=== PATIENT | female | born 1990 | race Caucasian/White ===

== ENCOUNTER 2016-08-11 02:17 | Inpatient (IN) | payer MEDICAID ==
[~2016-08-11] VITALS: Ht 156.2 cm; Wt 73.6 kg
[~2016-08-11 02:17] MED LIST: IBUPROFEN600 MG PO; MOTRIN600 MG PO; PERCOCET 5-3251 TAB PO; PERCOCET 5/3251 TA1 PO; TYLENOL #4 W/CO1 TAB PO
--- NOTE | 2016-08-11 02:51 | NUR ---
REPORT CALLED TO DR. MELENDEZ PER ASSESSMENT OF Renan FRANKLIN RN AND ER STAFF. INFORMED THAT PT. DELIVERED ENROUTE TO HOSPITAL A FOOTLING BREECH INFANT WITH ASSISTANCE OF HER MOTHER. CURRENTLY IN ER AND IT IS REPORTED THAT NO LACERATION NOTED AND NO REPAIRS FELT NEEDED AND INFANT STATUS IS STABLE [facility] BODY TEMP. LOW. STATES THAT HE WILL SEE PT. IN AM. ORDERS RECEIVED.
--- NOTE | 2016-08-11 03:08 | NUR ---
RECEIVED PT. VIA CART FROM ER. IV OF NS WITH 20U PITOCIN NOTED INFUSING AT 60CC/HR. FLOW RATE INCREASED TO 999CC/HR. FUNDUS FIRM AT U/2 AND LOCHIA RUBRA MOD. KRYSTYNA PADS CHANGED AND KRYSTYNA PANTIES APPLIED. PT. TALKATIVE AND REPORTS "SOME ABD. CRAMPING". INFANT WAS ON MOTHER'S CHEST SKIN TO SKIN ON ARRIVAL TO ROOM AND NBN STAFF TOOK INFANT TO NBN VIA OPEN CRIB. PT. ORIENTED TO ROOM, CALL SYSTEM, AND BED CONTROLS. IV PRESENTLY SITED IN RT AC AREA AND ALARMING WITH PT. BENDING ARM. IV INFUSING PER PUMP.
--- NOTE | 2016-08-11 03:10 | NUR ---
SIDE RAILS UP X 2. PT. AWAKE AND ORIENTED.
--- NOTE | 2016-08-11 03:15 | NUR ---
RECORD INDICATED PT. BLOOD TYPE O+ AND GBS +. NBN INFORMED OF BOTH AND RECORD CURRENTLY IN NBN. PT'S MOTHER RELATES THAT SHE MEET HER DAUGHTER AT THE [facility] STATION BY DYLON URBANO AND SHE GOT INTO THE MOTHER'S CARE AND BEGAN PUSHING. THE PT'S MOTHER RELATES THAT THE FIRST THING THAT SHE SAW PRESENTING WAS AN UMBILICAL CORD AND THEN THE FEET APPEARED. RELATES THAT ONLY SECONDS ELAPSED BETWEEN DELIVERY OF BODY UNTIL HEAD DELIVERED. STATES SHE NOTED BABY HAD A BOWEL MOVEMENT THE BUTTOCKS DELIVERED. PT'S MOTHER REPORTS THAT THE DID NOT CRY INITIALLY ALTHOUGH WAS LOOKING AROUND WITH OPEN EYES. RELATES THAT THE CORD WAS TIED OFF WITH A SHOE LACE. REPORTS THAT THE AMBULANCE DID NOT ARRIVE UNTIL AFTER THE ABOVE EVENTS. PT. RELATES THAT SHE HAD BEEN UNCOMFORTABLE OFF AND ON THROUGHOUT THE DAY (08/10/16) BUT WANTED TO BE SURE THAT IT WAS REAL LABOR. STATES SHE DID FEEL A GUSH OF FLUID, WHICH SHE THOUGH MIGHT BE BLOOD, 5-10 MINUTES PRIOR TO THE BABY DELIVERING. PT'S MOTHER STATES THAT INITIAL FLUID THAT SHE NOTED AT TIME OF DELIVERY WAS CLEAR AND THE INFANT STOOL CAME OUT AFTER THAT.
--- NOTE | 2016-08-11 03:30 | NUR ---
PT. REPORTS ABD. CRAMPING AN 8 OF 10 ON PAIN SCALE. LAUGHING AND TALKING WITH FAMILY AND NURSE.
[2016-08-11 03:37] VITALS: BP 124/75
[2016-08-11] MEDS ORDERED: TYLENOL W/CODEI1 TAB PO (03:45)
[2016-08-11] MEDS ORDERED: XANAX2 MG PO (03:47)
--- NOTE | 2016-08-11 03:49 | NUR ---
QUICK START COMPLETED FOR CURRENT MED USE AND ALLERGIES. PAIN MED GIVEN ORDERED. PT. REPORTS THAT OVER THE LAST TWO DAYS SHE HAS TAKEN TYLENOL #3 AND XANAX PRN. FUNDUS FIRM U/2 AND LOCHIA RUBRA MOD.
[2016-08-11 03:52] VITALS: BP 126/66; BP 128/77; Ht 156.2 cm; Wt 73.6 kg
[2016-08-11 04:07] VITALS: BP 133/82
--- NOTE | 2016-08-11 04:15 | NUR ---
PT. STATES SHE IS FEELING SLEEPY. DESIRES TO VOID. UP TO BATHROOM WITH ASSISTANCE. VOIDED.SELF KRYSTYNA CARE DISCUSSED AND PT. ASSISTED IN PREPARING AND USING. KRYSTYNA PADS AND PANTIES REAPPLIED. PT. RELATES THAT HER PAIN IS "MUCH IMPROVED AND EMPTYING BLADDER MADE A BIG DIFFERENCE". PT. TALKING WITH FOB AND LAUGHING. RATES PAIN A 7 OF 10.
--- NOTE | 2016-08-11 04:17 | NUR ---
FUNDUS FIRM U/2 AND LOCHIA RUBRA MOD. BED RAILS REMAIN UP X 2. FOB REMAINS IN ROOM.
[2016-08-11 04:21] VITALS: BP 126/63
--- NOTE | 2016-08-11 04:23 | NUR ---
INQUIRED IF PT. DESIRED TO EAT. INFORMED OF NOURISHMENTS AVAILABLE. SANDWICH TRAY AND COLA DRINK SERVED. PT. SITTING UP IN BED EATING. STATES DESIRE TO HAVE IV OUT SO SHE CAN BEND ARM. EXPLAINED WHEN COMPLETED WOULD CHANGE TO SALINE LOCK. PT. AGREEABLE.
--- NOTE | 2016-08-11 04:30 | NUR ---
IV COMPLETED AND CONVERTED TO SALINE LOCK. FUNDUS REMAINS FIRM U/2 AND LOCHIA RUBRA SCANT TO MOD AT THIS TIME.
--- NOTE | 2016-08-11 05:15 | NUR ---
INQUIRED OF PT. IF SHE HAD BLOOD DRAWN IN ER FOR LABS. PT. REPORTS THAT THEY DID. [facility] AND ER RECORDS REVIEWED WITHOUT EVIDENCE OF ANY LAB RESULTS. ER CALLED AND THIS NURSE INFORMED NO LABS WERE ORDERED.
--- NOTE | 2016-08-11 05:21 | NUR ---
LAB NOTIFIED FOR BLOOD DRAW.
--- NOTE | 2016-08-11 05:25 | NUR ---
PT. PRESENTLY ON PHONE AND CHEERFUL. ASKING WHEN WILL BE TO ROOM. INFORMED WOULD CHECK WITH NBN. SAME DONE AND RETURNED TO ROOM AND INFORMED PT. THAT WAS BEING SWADDLED TO BRING TO ROOM. PT. CHEERFUL. FOB REMAINS IN ROOM.
--- NOTE | 2016-08-11 06:09 | NUR ---
PT. SITTING UP IN BED FILLING OUT PAPERWORK FOR NBN. LYING ON BED IN FRONT OF PT. PT. STATES PAIN HAS CONTINUED TO DECREASE. C/O THAT SHE WOULD LIKE IV TAKEN OUT. INFORMED THAT LAB WOULD DRAW HER BLOOD ANYTIME AND THEN WE WOULD KNOW HER BLOOD COUNT AND IF ACCEPTABLE, WOULD DISCUSS DISCONTINUING AT THAT TIME. PT. AGREEABLE. FOB REMAINS IN ROOM.
--- NOTE | 2016-08-11 06:56 | NUR ---
LAB HERE AND BLOOD DRAWN.
[2016-08-11 07:10] LABS: HEMATOCRIT 28.2 % (36.0-48.0); HEMOGLOBIN 9.2 g/dL (12-16); MCH 27.5 pg (26.0-34.0); MCHC 32.6 g/dL (31.0-37.0); MCV 84.2 fL (80.0-100.0); MEAN PLATELET VOLUME 11.1 fL (7.4-10.4); RBC 3.35 10x6/uL (4.00-5.40); RDW 15.4 % (11.5-14.5); WBC 18.6 10x3/uL (4.8-10.8)
[2016-08-11 07:18] VITALS: BP 120/74
--- NOTE | 2016-08-11 07:24 | NUR ---
ASSUME CARE OF THIS PT. SITTING UP IN BED WITH INFANT. SHIFT ASSESSMENT COMPLETED. U/2 FIRM MIDLINE, RUBRA MOD. 8/10 C/O ABDOMINAL CRAMPING WITH MOVEMENT. DESIRES PAIN MEDICATION "I'LL TAKE ANYTHING I CAN." WOULD LIKE MOTRIN AND NORCO WHEN IT IS TIME. SMOKER, DESIRES PATCH TODAY. ALSO REQUEST IV OUT SECONDARY TO "STABBING" PAIN. SALINE LOCK REMOVED. WILL RESTART NEEDED. SIDERAILS UP X 2, CALL LIGHT IN REACH. BREAKFAST SERVED. ASKED FOR BOTTLE TO FEED BABY.
--- NOTE | 2016-08-11 07:38 | NUR ---
MOTRIN 600 MG PO GIVEN FOR CRAMPING. NICOTINE 14 MG PATCH PLACED ON LEFT DELTOID AREA LEFT ARM. IN NURSERY.
--- NOTE | 2016-08-11 08:34 | NUR ---
NORO 5 MG GIVEN PO FOR CONTINUED CRAMPING PER REQUEST OF PATIENT. PAIN DECREASED TO 7 /10. SIDERAILS UP X2, CALL LIGHT IN REACH. NO ADDITIONAL REQUESTS.
--- NOTE | 2016-08-11 09:16 | NUR ---
5/10 ON PAIN SCALE STATES "I'M FEELING MUCH BETTER" PUTTING MAKE-UP ON. VISITORS IN ROOM. NO ADDITIONAL REQUESTS AT THIS TIME. INFANT IN NURSERY FOR PEDIATRIC VISIT.
--- NOTE | 2016-08-11 10:20 | NUR ---
AMBULATED TO NURSERY AND RETURNED TO ROOM. VISITORS IN ROOM. NO REQUESTS AT THIS TIME.
[2016-08-11 10:36] LABS: UDS - AMPHET POSITIVE QUAL (NEGATIVE); UDS - BARB NEGATIVE QUAL (NEGATIVE); UDS - BENZO NEGATIVE QUAL (NEGATIVE); UDS - COCAINE NEGATIVE QUAL (NEGATIVE); UDS - METH NEGATIVE QUAL (NEGATIVE); UDS - OPIATE NEGATIVE QUAL (NEGATIVE); UDS - PCP NEGATIVE QUAL (NEGATIVE); UDS - THC NEGATIVE QUAL (NEGATIVE)
--- NOTE | 2016-08-11 11:08 | NUR ---
SITTING UP IN BED. VISITORS IN ROOM. INFANT IN ROOM. REQUESTED ICE CHIPS AND ASKED WHEN PAIN MEDICATION IS DUE. ICE CHIPS, FRESH WATER GIVEN AND LET PT KNOW THAT IT IS TOO EARLY FOR PAIN MED. INSTRUCTED THAT CRAMPING IS COMMON AND REMINDED TO KEEP BLADDER EMPTIED. VERBALIZED UNDERSTANDING. NO DISTRESS NOTED. UDS POSITIVE AND NURSERY WAS INFORMED.
--- NOTE | 2016-08-11 13:10 | NUR ---
RETURNED FROM AMBULATING IN [place]. C/O 8/10 BACK PAIN AND OCCASIONAL CRAMPS WITH WALKING. NORCO 5MG PO GIVEN FOR RELIEF. ALSO DISCUSSED SOME BACK EXERCISES/STRETCHING THAT CAN HELP. VERBALIZED UNDERSTANDING. U/3 FIRM, MIDLINE. VISITORS IN ROOM. LUNCH TRAY AT BEDSIDE. NO OTHER REQUESTS.
--- NOTE | 2016-08-11 14:10 | NUR ---
SAYS SHE IS FEELING MUCH BETTER. 5/10 ON PAIN SCALE. PLANS TO AMBULATE IN [place]. VISITORS IN ROOM. NO REQUESTS.
--- NOTE | 2016-08-11 15:34 | NUR ---
SITTING UP IN BED TALKING TO VISITOR. IN ROOM. FRESH ICE CHIPS GIVEN. NO ADDITIONAL REQUESTS.
--- NOTE | 2016-08-11 17:37 | NUR ---
SITTING UP IN BED TALKING TO VISITORS. DINNER TRAY AT BEDSIDE. DENIES NEEDING ANYTHING AT THIS TIME. CALL LIGHT IN REACH.
--- NOTE | 2016-08-11 18:41 | NUR ---
SITTING UP IN BED BOTTLEFEEDING BABY. DENIES NEEDING ANYTHING AT THIS TIME. PLANS TO SHOWER LATER THIS EVENING. VISITORS IN ROOM.
--- NOTE | 2016-08-11 19:20 | NUR ---
RN TO PT BS FOR ELIAZAR. PT AMBULATING IN ROOM IN NO ACUTE DISTRESS. 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 PT IS A 26YO G3 NOW P3 WITH ENROUTE TO HOSPITAL EARLY THIS AM. PER PT MOTHER REPORT, DELIVERED IN FOOTLING BREECH PRESENTATION WITH UMBILICAL CORD DELIVERED FIRST. NO LACERATIONS NOTED PER ER MD. AAOX3. HR REGULAR. LUNGS CTAB. ABDOMEN SOFT AND NON TENDER. BS ACTIVE TIMES 4. FUNDUS FIRM AND ML @ U/-2. LOCHIA RUBRA SCANT. PERINIUM APPEARS TO BE INTACT WITH NO SWELLING NOTED. KRYSTYNA PAD AND PANTIES IN PLACE. PT DENIES DIFFICULTY VOIDING OR PASSING GAS. PT STATES SHE HAS NOT HAD A BM YET, REQUESTS STOOL SOFTNER. PER DR. 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 NO SWELLING NOTED TO UPPER OR LOWER EXTREMITIES BILATERALLY. NO IV ACCESS. PT C/O PAIN, RATES 8/10, REQUESTS MEDICATION, 1 TAB NORCO 10 AND 1 TAB IBUPROFEN PROVIDED PO AT THIS TIME. PT DENIES ANY FURTHER NEEDS. BED IN LOW POSITION, SIDE RAILS UP TIMES 2, CALL LIGHT AND PHONE IN REACH. SO AT PT BS FOR SUPPORT AND ASSISTANCE. INFANT REMAINS AT PT BS FOR COUPLET CARE. WILL CONT TO MONITOR PT STATUS AND PROVIDE PT WITH MOM WHEN REMOVED BY [employer] SHARPSHOOTER.
[2016-08-11 19:25] VITALS: BP 120/68
--- NOTE | 2016-08-11 19:40 | NUR ---
SHAMPOO, CONDITIONER, SOAP, AND FRESH LINENS PROVIDED TO PT FOR SHOWER.
--- NOTE | 2016-08-11 20:06 | NUR ---
RN TO PT BS. PT RESTING IN BED IN SEMI-FOWLERS POSITION, IN NO ACUTE DISTRESS. MOM PROVIDED AT THIS TIME. PT DENIES ANY FURTHER NEEDS. BED IN LOW POSITION, SIDE RAILS UP TIMES 2, CALL LIGHT AND PHONE IN REACH. FAMILY AT PT BS TIMES 3 FOR SUPPORT AND ASSISTANCE. REMAINS AT PT BS FOR COUPLET CARE. WILL CONT TO MONITOR PT STATUS.
--- NOTE | 2016-08-11 21:50 | NUR ---
RN TO PT BS FOR ROUNDS. PT AMBULATING IN ROOM IN NO ACUTE DISTRESS. PT REQUESTS RN TO BOTTLEFEED INFANT SO SHE CAN AMBULATE. INFANT TRANSPORTED TO LABOR AND DELIVERY DESK FOR INFANT FEED. PT DENIES ANY FURTHER NEEDS. BED IN LOW POSITION, SIDE RAILS UP TIMES 2, CALL LIGHT AND PHONE IN REACH. WILL CONT TO MONITOR PT STATUS.
--- NOTE | 2016-08-11 23:42 | NUR ---
RN TO PT BS FOR ROUNDS. PT AMBULATING IN ROOM IN NO ACUTE DISTRESS. PT C/O PAIN, RATES 9/10, REQUESTS MEDICATION. 1 TAB NORCO 10 PROVIDED AT THIS TIME WITH FRESH CUP OF ICE. PT DENIES ANY FURTHER NEEDS AT THIS TIME. BED IN LOW POSITION, SIDE RAILS UP TIMES 2, CALL LIGHT AND PHONE IN REACH. SO REMAINS AT PT BS FOR SUPPORT AND ASSISTANCE. AT PT BS FOR COUPLET CARE. WILL CONT TO MONITOR PT STATUS.
--- NOTE | 2016-08-12 01:54 | NUR ---
RN TO PT BS FOR ROUNDS. PT SITTING IN BED DISCUSSING POC OF WITH NURSERY RN. PT DENIES ANY NEEDS AT THIS TIME. BED IN LOW POSITION, SIDE RAILS UP TIMES 2, CALL LIGHT AND PHONE IN REACH. WILL CONT TO MONITOR PT STATUS.
--- NOTE | 2016-08-12 03:19 | NUR ---
PT AMBULATING IN [place] IN NO ACUTE DISTRESS. PT DENIES ANY NEEDS AT THIS TIME.
--- NOTE | 2016-08-12 03:32 | NUR ---
PT CALLS, C/O PAIN, RATES 04/14, REQUESTS MEDICATION. 1 TAB IBUPROFEN AND 1 TAB NORCO 10 PROVIDED AT THIS TIME WITH FRESH ICE. PT DENIES ANY FURTHER NEEDS. BED IN LOW POSITION, SIDE RAILS UP TIMES 2, CALL LIGHT AND PHONE IN REACH. WILL CONT TO MONITOR PT STATUS.
--- NOTE | 2016-08-12 04:45 | NUR ---
PT AMBULATING IN [place] IN NO ACUTE DISTRESS. PT ASKS RN TO OBSERVE WHILE SHE AMBULATES. INFANT LEFT AT NURSES STATION IN OPEN CRIB FOR OBSERVATION. SWADDLED IN NO ACUTE DISTRESS. WILL CONT TO MONITOR INFANT.
--- NOTE | 2016-08-12 06:35 | NUR ---
DR. MELENDEZ HERE FOR ROUNDS. REPORT GIVEN TO HIM ON MATERNAL DRUG SCREEN, PAIN MEDICATION GIVEN ON PM SHIFT, AND PT C/O PAIN THROUGH OUT THE NIGHT, PER MD, D/C PAIN MEDICATION AT THIS TIME, PT MAY ONLY HAVE MOTRIN FOR C/O PAIN. ORDERS PLACED AND NOTED.
--- NOTE | 2016-08-12 07:22 | NUR ---
ASSUMED CARE OF THIS PATIENT. CURRENTLY SLEEPING ON RIGHT SIDE. EYES CLOSED, RESPIRATIONS EVEN. NOT AROUSED AT THIS TIME. WILL COMPLETE SHIFT ASSESSMENT AND PLAN FOR DC WHEN AWAKE. INFANT IN NURSERY. SIDE RAILS UP X2, CALL LIGHT IN REACH.
--- NOTE | 2016-08-12 08:00 | NUR ---
INFANT IN ROOM. PT INFORMED SHE HAS BEEN DC'D. ASKED ABOUT ROOMING IN. CONTACTED NEW ORDERS TO ALLOW PT TO ROOM-IN RECEIVED. WILL COMPLETE ASSESSMENT AFTER FEEDING.
[2016-08-12 08:54] VITALS: BP 120/67
--- NOTE | 2016-08-12 09:05 | NUR ---
SHIFT ASSESSMENT COMPLETED. MOTRIN 600 MG GIVEN PO FOR C/O THROBBING MARTINEZ IN TEMPLES 03/14. DC TEACHING COMPLETED. QUESTIONS ANSWERED. DISCUSSED DC MEDICATION MOTRIN 600 MG PO EVERY 6 HOURS NEEDED FOR PAIN. SAYS SHE DOES NOT THINK THAT WILL HELP HER BACKPAIN AND THINKS SHE WILL NEED SOMETHING. SAYS THAT MEDICATION SHE HAS BEEN RECEIVING WHILE IN THE HOSPITAL HAS "BARELY TOUCHED" THE PAIN. INSTRUCTED PT THAT RN WILL LET DR MELENDEZ KNOW. NO ADDITIONAL REQUESTS. IN ROOM. WILL TRANSFER TO CLEAN ROOM FOR ROOMING-IN STATUS ON WOMEN'S FLOOR.
--- NOTE | 2016-08-12 09:50 | NUR ---
PATIENT SIGNED ROOMING-IN PAPERS. DC TO 1214 FOR ROOMING-IN.
[2016-08-14 03:08] LABS: RAPID PLASMA REAGIN Non Reactive (Non Reactive)
[2016-08-19 03:06] LABS: UDSC - AMPHET Comment: (Cutoff=1000); UDSC - BARB Negative ng/mL (Cutoff=300); UDSC - BENZO Negative ng/mL (Cutoff=300); UDSC - COC Negative ng/mL (Cutoff=300); UDSC - METH Negative ng/mL (Cutoff=300); UDSC - OPIATES Negative ng/mL (Cutoff=300); UDSC - PCP Negative ng/mL (Cutoff=25); UDSC - PROPOXY Negative ng/mL (Cutoff=300); UDSC - THC Negative ng/mL (Cutoff=50)
--- NOTE | 2016-10-02 11:44 | DS ---
PATIENT:KILEY BAE :89 MEDICAL RECORD: [id number] DISCHARGE SUMMARY ADMISSION DATE: 08/11/16 DISCHARGE DATE: 08/12/16 HOSPITAL COURSE: The patient was admitted on 08/11/2016. A 26-year-old G2, P1, who presented to the Emergency Room, status post a precipitous breech delivery with a likely cord prolapse. PAST MEDICAL HISTORY: Significant for tobacco, anemia and abnormal Pap smear. PAST SURGICAL HISTORY: The patient reported no surgical history. ALLERGIES: No known allergies. MEDICATIONS: The patient reported medications taking Xanax and Tylenol 3 with codeine. The patient reported no significant past medical history. The patient reported being an everyday smoker of both tobacco and marijuana. Upon initial exam, vital signs were stable. The patient was afebrile and normotensive. Lungs were clear to auscultation. Cardiovascular was regular rate and rhythm. Uterus was appropriately sized and immediate period with minimal lochia. The lower extremities were free of erythema or Homans sign. No significant tears were noted other than a mild first-degree tear at the perineum. LABORATORY DATA: Admission hemoglobin was found to be 9.2. ASSESSMENT AND PLAN: At that time, the patient was admitted, status post precipitous breech delivery out of the hospital. The patient with anemia. The patient had a history of tobacco and marijuana use. Admit for normal care. The patient did well overnight on post- day #0. On day #1, the patient continued to do well. The uterus was infraumbilical and nontender with minimal lochia. Vital signs remained within normal limits. On admission, urine drug screen was found to be positive for amphetamine. The patient was discharged home on day #1 without any narcotics due to high potential for abuse. [facility] was made aware. The patient was instructed to follow up in 4 weeks. TRANSINT:[id number] Voice Confirmation ID: [id number] DOCUMENT ID: [id number] ROMERO MELENDEZ MD at 1142 CC: [id number] DICTATION DATE: 09/23/16 0759 FLOTATION TANK OPERATOR: 09/23/16 0913 DIS IN 08/12/16 [place] [address]
== END 2016-08-12 09:50 | disposition home or self-care (01) | DRG 775 ==
LOC: D.ER 02:17 → D.LD 02:56
PROVIDERS: ADMIT Obstetrics & Gynecology
DX: O99.825 Streptococcus B carrier state complicating the puerperium (principal); Z37.0 Single live birth; O32.1XX0 Maternal care for breech presentation, not applicable or unspecified; Z3A.37 37 weeks gestation of pregnancy; O99.335 Smoking (tobacco) complicating the puerperium; O90.81 Anemia of the puerperium; O99.325 Drug use complicating the puerperium; F12.90 Cannabis use, unspecified, uncomplicated